=== PATIENT | male | born 1980 | race Caucasian/White ===

== ENCOUNTER → 2016-03-22 | Outpatient (CLI) | payer BC ==
[2016-03-22 14:38] LABS: CH 29.8; CHCM 33.1; HCT 49.8 % (39.0-53.0); HDW 2.37; HGB 16.2 gm/dL (13.0-17.5); MCH 29.4 pg (25.0-35.0); MCHC 32.6 g/dL (31.0-37.0); MCV 90.4 fL (80.0-100.0); Mean Platelet Volume 7.9; RBC 5.51 m/uL (4.30-5.90); RDW 12.2 % (11.5-15.5); WBC 7.5 k/uL (3.8-10.6)
[2016-03-22 14:49] LABS: INR 1.1 (<1.1); Prothrombin Time 11.3 sec (9.0-12.0)
== END | disposition home or self-care (01) ==
LOC: LABPAT 12:54
PROVIDERS: ATTEND Otolaryngology
DX: Z01.812 Encounter for preprocedural laboratory examination (principal); J35.01 Chronic tonsillitis
CPT/HCPCS: 85027; 85610; 85730

== ENCOUNTER 2016-03-24 08:28 | Day surgery (SDC) | payer BC ==
[2016-03-22 15:02] VITALS: BMI 35.6
--- NOTE | 2016-03-24 06:01 | HP ---
DATE OF ADMISSION: Chief complaint is recurrent tonsillitis. HISTORY OF PRESENT ILLNESS: This patient is a 36-year-old male who was recently seen in my office with complaints of having recurrent episodes of tonsillitis. During these episodes, the patient becomes quite toxic and experiences severe sore throat with referred ear pain. He has been treated with numerous oral antibiotics, which lately seem to not be very effective. At the time that he was seen in my office, clinical examination of the oropharynx revealed 4+ cryptic tonsils filled with white cheesy debris. It was recommended that the patient undergo a tonsillectomy under general anesthesia. Past medical history reveals the patient has no known allergies to medications. His current medications include testosterone, TriCor, and Xanax. There is no history of asthma, diabetes mellitus, or hypertension. Review of systems is positive with respect to the metabolic/endocrine system in that the patient is known to have hypercholesterolemia. The patient's previous surgeries include arthroscopic surgery of the left knee and an appendectomy. The remainder of the review of systems was unremarkable. PHYSICAL EXAMINATION: This patient is a 36-year-old male who is alert and cooperative. HEENT EXAMINATION: Patient is normocephalic. Tympanic membranes are normal. Middle ear spaces are free of any fluid or infection. Pupils equal, round, and reactive to light and accommodation. Extraocular movements are within normal limits. Intranasal examination reveals moderate to severe septal deviation to the left with bilateral compensatory hypertrophy of inferior turbinates. Examination of oropharynx reveals 4+ cryptic tonsils filled with white cheesy debris. Palpation of the neck is negative for any neck masses or lymphadenopathy. Cranial nerves 2 through 12 and the remainder of the head and neck exam are within normal limits. CHEST/CARDIOVASCULAR: Both lung stack are clear to percussion and auscultation. The patient is in regular sinus rhythm. S1 and S2 are present without evidence of any murmurs. Peripheral pulses are bilaterally symmetrical. ABDOMEN: There is no evidence of any masses, megaly or tenderness. The abdomen is soft. Skin is unremarkable. Musculoskeletal and neurological are within normal limits. RECTAL EXAM: The rectal exam is deferred at this time because the patient has this done on a regular basis at his family physician's office. The remainder of physical exam is unremarkable. IMPRESSION: Chronic tonsillitis with tonsillar hypertrophy. PLAN: The patient is scheduled undergo a tonsillectomy under general anesthesia in a.m. ATTENTION RNS IN THE PRESURGICAL AREA: The only presurgical antibiotics that have been ordered by me or my office are aqueous Pen-G 2 million units IV and he also has an order to receive 1000 mg of Ofirmev IV, both to be given once an intravenous line has been established. If any other preoperative antibiotics have been ordered, they should be canceled. Also make sure that the patient's account is credited appropriately. I have explained the operation/procedure to the patient, including the risks, benefits, side effects, alternative therapies (including not receiving the proposed treatment or service), the likelihood of the patient achieving his/her goals, and potential recuperation problems for the procedure/sedation/analgesia, as well as any blood products, if indicated. I also explained to the patient the risks, benefits, and side effects of the alternatives, as well as the risks related to not receiving the proposed procedure, care treatment or services.
[~2016-03-24 08:28] MED LIST: NALOXONE 0.4 MG/ML 1 ML VIAL IV PRN; Pre Op ABX Message 1 EACH MISC MISCELLANE ONE
[2016-03-24] MEDS: ONDANSETRON 4 MG/2 ML VIAL IVP PRN ×2 (08:50→14:07)
[2016-03-24] MEDS ORDERED: ACETAMINOPHEN IV (For NPO) 1,000 MG in EMPTY BAG 1 BAG IVPB ONE ×2 (09:45→16:00)
[2016-03-24] MEDS ORDERED: PENICILLIN G POTASSIUM 2,000,000 UNIT in DEXTROSE 5% IN WATER 100 ML IVPB ONE ×2 (09:45)
[2016-03-24] MEDS ORDERED: GLYCOPYRROLATE 0.2 MG/ML 2 ML VIAL ONE (10:03)
[2016-03-24] MEDS ORDERED: ROCURONIUM BROMIDE 10 MG/ML 10 ML VIAL IV ONE (10:03)
[2016-03-24] MEDS ORDERED: NEOSTIGMINE 1 MG/ML 10 ML VIAL ONE (10:03)
[2016-03-24] MEDS ORDERED: fentaNYL (PF) 50 MCG/ML 2 ML AMP ONE (10:03)
[2016-03-24] MEDS ORDERED: MIDAZOLAM 2 MG/2 ML VIAL ONE (10:03)
[2016-03-24] MEDS ORDERED: PROPOFOL 10 MG/ML 20 ML VIAL IV ONE (10:03)
[2016-03-24] MEDS ORDERED: DEXAMETHASONE SOD PHOS (MDV) 100 MG/10 ML VIAL ONE (10:03)
[2016-03-24] MEDS ORDERED: KETOROLAC 30 MG/ML 1 ML VIAL ONE (10:03)
[2016-03-24] MEDS ORDERED: LIDOCAINE 1% INJ 10MG/ML (20 ML MDV) ONE (10:03)
[2016-03-24] MEDS ORDERED: SUCCINYLCHOLINE CHLORIDE VIAL 200 MG/10 ML VIAL IV ONE (10:03)
[2016-03-24] MEDS ORDERED: BUPIVACAINE (PF) 0.5% 30 ML VIAL SQ ONE ×2 (10:28)
[2016-03-24] MEDS ORDERED: LACTATED RINGERS 1,000 ML IV ONE (11:14)
[2016-03-24] MEDS ORDERED: LACTATED RINGERS 1,000 ML IV SCH (11:15)
[2016-03-24] MEDS ORDERED: HYDROmorphone PCA 5 MG/25 ML SYRINGE IV PRN (11:15)
[2016-03-24 12:06] VITALS: TEMP 98.6
[2016-03-24 14:46] VITALS: BP 115/56; PULSE 94; RESP 18
--- NOTE | 2016-03-26 13:57 | OP ---
DATE OF SERVICE: 03/24/2016 SURGEON: SHARATH FAULKNER MD OFFICE CORRESPONDENT: PREOPERATIVE DIAGNOSIS: Chronic tonsillitis. POSTOPERATIVE DIAGNOSIS: Chronic tonsillitis. OPERATION: Tonsillectomy. ANESTHESIA: ESTIMATED BLOOD LOSS: Less than 25 mL. SPECIMENS REMOVED: COMPLICATIONS: None. OPERATIVE FINDINGS: OPERATIVE PROCEDURE: The patient was placed on the operating table in the supine position, after uneventful induction and endotracheal intubation, satisfactory general anesthesia was obtained. Next, the #3 Oral-Sabino mouth gag was introduced into the oropharynx, expanded and suspended from a Ware stand. Following this, both peritonsillar areas were injected with approximately 10 mL of 0.25% Marcaine solution without epinephrine. Following this, attention was directed toward the right tonsil which was grasped with the tonsillar forceps and pulled medially. The sickle knife was used to make an incision 4 mm lateral to the anterior pillar, beginning at the superior pole and working down to the inferior pole with a similar incision being carried out parallel to the posterior pillar. The angle scissors and the serrated Jacoby dissector were used to dissect the tonsil away from the tonsillar fossa. The tonsil itself was excised en toto using the tonsillar snare. Hemostasis was obtained using suction cautery. A sponge was placed in the empty tonsillar fossa. Attention was then directed to the left tonsil where the same procedure was carried out, with the left tonsil being grasped with the tonsillar forceps and pulled medially. The sickle knife was used to make an incision 4 mm lateral to the anterior pillar beginning at the superior pole and working down to the inferior pole with a similar incision being carried out parallel to the posterior pillar. Once again, the angle scissors and the serrated Jacoby dissector were used to dissect the tonsil away from the tonsillar fossa and the tonsil itself was excised en toto using the tonsillar snare. Hemostasis was obtained using suction cautery. A sponge was placed in the empty tonsillar fossa. The mouth gag was relaxed for a period of approximately 7 minutes and upon re-expanding and removing all sponges, no evidence of any active bleeding was noted. At this point, the procedure was terminated. There were no intraoperative complications. The patient tolerated the procedure well and was returned to the recovery room in satisfactory condition.
== END 2016-03-24 16:35 | disposition home or self-care (01) ==
LOC: OR 08:28
PROVIDERS: ATTEND Otolaryngology
DX: J35.01 Chronic tonsillitis (principal); Z79.899 Other long term (current) drug therapy
CPT/HCPCS: 88304; 42826; J2250; J0330; J2540; J2710; J2405; J2001; J3010; J1885; J1100; J1170; J0131; J2704

== ENCOUNTER → 2016-03-28 | Outpatient (CLI) | payer BC ==
[~2016-03-28] MED LIST changes: +DEXAMETHASONE SOD PHOSPHATE 10 MG/ML 1 ML VIAL IV NR; +HYDROmorphone 1 MG/ML 1 ML SYRINGE IVP NR; +LACTATED RINGERS 1,000 ML IV SCH; -NALOXONE 0.4 MG/ML 1 ML VIAL IV PRN; +ONDANSETRON 4 MG/2 ML VIAL IVP NR; -Pre Op ABX Message 1 EACH MISC MISCELLANE ONE; +SODIUM CHLORIDE 0.9% 250 ML in EMPTY BAG 1 BAG IV PRN; +SODIUM CHLORIDE 0.9% 500 ML in EMPTY BAG 1 BAG IV PRN
[2016-03-28 12:34] VITALS: BP 132/93; PULSE 90; RESP 18; TEMP 98.5
== END | disposition home or self-care (01) ==
LOC: PROCWHC3 12:07
PROVIDERS: ATTEND Otolaryngology
DX: E86.0 Dehydration (principal)
CPT/HCPCS: 96360; 96375; J1100; J2405; J1170

== ENCOUNTER → 2016-10-26 | Outpatient (CLI) | payer BC ==
--- NOTE | 2016-10-27 07:58 | XR ---
EXAM TYPE: LUMBAR SPINE X RAY SERIES COMPARISON: NONE HISTORY: Pain TECHNIQUE: 2 views are submitted. FINDINGS: Alignment is anatomic. The pedicles are intact. The transverse processes are intact. There is no s pondylolysis or spondylolisthesis. Spina bifida occulta lumbosacral junction. Degenerative disc dise ase L4-5 and L5-S1 with hypertrophic spurs at all levels IMPRESSION: 1. Multilevel degenerative disc disease. 2. Spina bifida occulta lumbosacral junction.
== END ==
LOC: RADXRMAIN 15:54
PROVIDERS: ATTEND Physician Assistant
DX: M51.36 Other intervertebral disc degeneration, lumbar region (principal); Q05.7 Lumbar spina bifida without hydrocephalus
CPT/HCPCS: 72100

== ENCOUNTER → 2016-10-27 | Outpatient (CLI) | payer BC ==
--- NOTE | 2016-10-27 07:33 | MR ---
MR lumbar spine wo con Other intervertebral disc degeneration, lumbar Multiplanar, multiecho imaging of the lumbar spine was obtained without contrast on a 3 Josseline magn et. REFERENCE:None. FINDINGS: Paraspinal soft tissues are normal. Vertebral body height and alignment are maintained. Cord signal is maintained. The conus ends normally at the level of the mid body of L1 At T12-L1 and L1-2, no definite abnormality is seen. At L2-3 and L3-4, there is minor capsulitis within the facets. At L4-5, the intervertebral foramina are well maintained. There is disc space loss and disc desiccati on. There is a diffuse disc displacement. There is mild hypertrophic change and capsulitis sets. At L5-S1, there is disc space loss and disc desiccation. Intervertebral foramina are well maintained. There is a diffuse disc displacement. There is mild capsulitis within the facets. IMPRESSION: 1. DEGENERATIVE DISC DISEASE, L4-5 AND L5-S1. 2. MILD, DIFFUSE FACET ARTHROPATHY. 3. NO SIGNIFICANT COMPRESSIVE DISCOPATHY OR NEURAL COMPRESSION.
== END | disposition home or self-care (01) ==
LOC: RADMRIMAIN 06:08
PROVIDERS: ATTEND Physician Assistant
DX: M51.37 Other intervertebral disc degeneration, lumbosacral region (principal); M46.06 Spinal enthesopathy, lumbar region
CPT/HCPCS: 72148

== ENCOUNTER → 2017-08-01 | Outpatient (CLI) | payer MEDICAID ==
--- NOTE | 2017-08-02 08:49 | XR ---
EXAMINATION TYPE: XR chest 2V DATE OF EXAM: 08/01/2017 COMPARISON: NONE HISTORY: Palpitations TECHNIQUE: Frontal and lateral views of the chest are obtained. FINDINGS: There is no focal air space opacity, pleural effusion, or pneumothorax seen. The cardiac silhouette size is within normal limits. The osseous structures are intact. IMPRESSION: No acute cardiopulmonary process.
== END | disposition home or self-care (01) ==
LOC: RADECHMAIN 17:02
PROVIDERS: ATTEND Physician Assistant
DX: I10 Essential (primary) hypertension (principal); I47.1 Supraventricular tachycardia; R00.1 Bradycardia, unspecified
CPT/HCPCS: 71046; 93225; 93226

== ENCOUNTER → 2020-08-06 | Outpatient (CLI) | payer BC ==
--- NOTE | 2020-08-06 13:02 | CT ---
EXAMINATION TYPE: CT lower extremity RT wo con DATE OF EXAM: 08/06/2020 COMPARISON: None HISTORY: right lower leg redness and pain, post cat bite. rule out cellulitis and osteomyelitis CT DLP: 313.1 mGycm Automated exposure control for dose reduction was used. Contrast: None Technique: Axial images 2 mm thick sections. Reconstructed images are performed in the coronal and sa gittal plane. Soft tissue and bone windows are performed. FINDINGS: Diffuse soft tissue stranding is present throughout the subcutaneous tissue. Muscle density appears n ormal. No radiopaque foreign bodies are identified. Minimal joint fluid is not excluded. Cortex appea rs intact. No suspicious changes to suggest osteomyelitis radiographically apparent on the CT examina tion. Os talus is evident, normal variant. IMPRESSION: 1. DIFFUSE SOFT TISSUE STRANDING SUGGESTIVE FOR CELLULITIS. 2. NO ABSCESS FORMATION OR OSTEOMYELITIS RADIOGRAPHICALLY APPARENT.
== END | disposition home or self-care (01) ==
LOC: RADCTMAIN 12:36
PROVIDERS: ATTEND Family Medicine
DX: L03.115 Cellulitis of right lower limb (principal)